=== PATIENT | male | born 1960 | race Caucasian/White ===

== ENCOUNTER 2016-11-16 16:12 | Emergency (ER) | payer OTHER ==
[2016-11-16 16:48] LABS: MANUAL DIFF NEEDED? NO
[2016-11-16 17:00] LABS: BASO% 0.1 % (0.0-0.8); EOS# 0.08 X1000 (0.0-0.7); EOS% 1.1 % (0.0-10.0); HEMATOCRIT 45.3 % (42.0-52.0); HEMOGLOBIN 16.5 g/dL (14.0-18.0); IMM GRAN# 0.04 X1000 (0.0-0.04); IMM GRAN% 0.5 % (0.0-0.5); LYMPH# 1.95 X1000 (1.2-3.4); LYMPH% 26.5 % (20.5-51.1); MCH 32.8 PG (27-31); MCHC 36.4 g/dL (33-37); MCV 90.1 FL (81-99); MONO# 0.39 X1000 (0.11-0.59); MONO% 5.3 % (1.7-9.3); MPV 11.1 FL (7.4-10.4); NEUT% 66.5 % (42.2-75.2); PLT 214 X1000 (130-400); RBC 5.03 XMIL (4.7-6.1)
[2016-11-16 17:32] LABS: INR 0.97; PROTIME 9.9 Seconds (9.2-11.7)
[2016-11-16 17:33] LABS: AGAP 15; ALBUMIN 3.9 g/dL (3.5-5.0); ALKALINE PHOSPHATASE 104 U/L (32-122); BUN 13 mg/dL (8-22); CALCIUM 9.9 mg/dL (8.8-10.2); CHLORIDE 89 mmol/L (98-107); COSMO 280; GOT 38 U/L (10-34); GPT 106 U/L (10-44); POTASSIUM 4.9 mmol/L (3.5-5.1); SODIUM 129 mmol/L (136-145); TCO2 25 mmol/L (25-35); TOTAL BILIRUBIN 0.51 mg/dL (0.20-1.00); TOTAL PROTEIN 7.1 g/dL (6.3-8.3)
[2016-11-16] MEDS ORDERED: HUMULIN R SUBQ ONE (17:34)
[2016-11-16] MEDS ORDERED: NS 1,000 ML IV ONE (17:34)
[2016-11-16 18:03] LABS: ALLEN TEST NO; BE 0.1 mmoll (-3.0-3.0); BLOOD TYPE ARTERIAL; DRAW SITE R BRACHIAL; METHB 1.6 % (0.0-1.5); O2(CT) 19.6 mL/dL (15.0-23.0); PCO2(98.6) 35 mmHg (35-45); PO2(98.6) 87 mmHg (60-100); SAMPLE BLOOD; SAO2 98.8 % (95.0-100.0); THB 15.3 g/dL (11.5-17.4); pH(98.6) 7.44 (7.35-7.45)
[2016-11-16 18:05] LABS: MODALITY ROOM AIR
[2016-11-16 18:20] LABS: URINE MICRO REVIEW NEEDED? NO; URINE SOURCE VOIDED
[2016-11-16 18:23] LABS: BILIRUBIN URINE NEGATIVE (NEGATIVE); BLOOD URINE NEGATIVE (NEGATIVE); COLOR YELLOW; GLUCOSE URINE >1000 mg/dL (NEGATIVE); LEUKOCYTES URINE NEGATIVE (NEGATIVE); NITRITE URINE NEGATIVE (NEGATIVE); PH URINE 5.5; PROTEIN URINE NEGATIVE (NEGATIVE); SP GRAVITY URINE 1.033; TURBIDITY URINE CLEAR (CLEAR); UROBILINOGEN URINE NORMAL (NORMAL)
[2016-11-16 18:24] LABS: UR EPITHELIAL CELLS <10 /HPF (<10); URINE BACTERIA NEGATIVE /HPF; URINE RBC <10 /HPF (<10); URINE WBC <10 /HPF (<10)
[2016-11-16] MEDS ORDERED: NS 500 ML IV ONE (18:58)
[2016-11-16 19:00] LABS: UR AMPHETAMINES QUAL NONE DETECTED (NONE DETECT); UR BARBITUATES QUAL NONE DETECTED (NONE DETECT); UR BENZODIAZEPIN QUAL NONE DETECTED (NONE DETECT); UR CANNABINOIDS QUAL NONE DETECTED (NONE DETECT); UR COCAINE QUAL NONE DETECTED (NONE DETECT); UR METHADONE QUAL NONE DETECTED (NONE DETECT); UR OPIATES QUAL NONE DETECTED (NONE DETECT); UR OXYCODONE QUAL PRESUMPTIVE POSITIVE (NONE DETECT); UR PCP QUAL NONE DETECTED (NONE DETECT)
--- NOTE | 2016-11-16 19:03 | PROVIDER DOCUMENTATION ---
HPI-General Adult - History of Present Illness -Gen Adult Nature of Presenting Problems: A 55 y/o M who was recently diagnosed with type 2 DM presented with non specific symptoms of mild headache fatigue and tiredness, as per pt e was started on glucophage BID but pt was also diagnosed with URI symptoms and was treated with ABX and steroids as outpt, came in for further evaluation, on further monitoring noted elevated glucose levels, denies CP/SOB/n/v/d/garsia/ abdominal pain <To Omer - Last Filed: 11/16/16 20:11> <Donte Campos - Last Filed: 11/16/16 20:55> - General Chief Complaint: High Blood Sugar Stated Complaint: "BLOOD SUGAR 492" Time Seen by Provider: 11/16/16 17:33 Allergies/Adverse Reactions: Patient Allergies Allergy/AdvReac Type Severity Reaction Status Date / Time levofloxacin [From Levaquin] Allergy tendonitis Verified 11/16/16 18:56 Home Medications: Home Medication List Medication Instructions Recorded Confirmed Last Taken Type Baclofen 10 mg PO 4XDAY PRN 11/16/16 11/16/16 11/16/16 10:00 History Losartan/Hydrochlorothiazide 1 each PO DAILY 11/16/16 11/16/16 11/16/16 10:00 History [Hyzaar 100-25 Tablet] Metformin [Glucophage] 500 mg PO BID 11/16/16 11/16/16 11/16/16 10:00 History Metoprolol Succinate E.r. [Toprol 25 mg PO QHS 11/16/16 11/16/16 11/15/16 21:30 History Xl] Oxycodone HCl [Oxycontin] 40 mg PO BID 11/16/16 11/16/16 11/15/16 21:30 History Oxycodone HCl/Acetaminophen 1 each PO 4XDAY PRN 11/16/16 11/16/16 11/16/16 10: 00 History [Percocet 10-325 mg Tablet] Review of Systems - Adult - REVIEW OF SYSTEMS - ADULT Constitutional: reports: see HPI Eyes: reports: no symptoms reported Ears, Nose, Mouth & Throat: reports: no symptoms reported Cardiovascular: reports: no symptoms reported Respiratory: reports: no symptoms reported Gastrointestinal: reports: no symptoms reported Genitourinary: reports: no symptoms reported Musculoskeletal: reports: no symptoms reported Integumentary: reports: no symptoms reported Neurological: reports: no symptoms reported Psychiatric: reports: no symptoms reported Endocrine: reports: no symptoms reported Hematologic/Lymphatic: reports: no symptoms reported Allergic/Immunologic: reports: no symptoms reported All Other Systems: Reviewed and Negative <To Omer - Last Filed: 11/16/16 20:11> Past History - Adult - PAST MEDICAL HISTORY-ADULT Review of Records: reports: Old Records Reviewed, Nursing Assessment Review, Medications Reviewed, Social history reviewed & non-contributory. Major Childhood Illnesses: reports: denies history Cardiovascular: reports: denies history Respiratory: reports: denies history Gastrointestinal: reports: denies history Obstetrical/Gynecological: reports: denies history Genitourinary: reports: denies history Musculoskeletal: reports: denies history Neurological: reports: denies history Endocrine/Immune: reports: denies history Other Conditions: reports: denies history - FAMILY HISTORY Family History: reviewed, not pertinent <To Omer - Last Filed: 11/16/16 20:11> Physical Exam-General - PHYSICAL EXAM-ADULT Initial Vital Signs Reviewed: Yes - CONSTITUTIONAL General Appearance: appears well, alert, no apparent distress - EYES Eyes: PERRL/EOMI, pink conjunctivae, fundi clear, no AV nicking - HEAD, EARS, NOSE, MOUTH & THROAT HENMT: normocephalic/atraumatic, moist mucous membranes, normal ENT inspection, TMs normal, pharynx normal - NECK Neck: non-tender, full range of motion, supple - RESPIRATORY Respiratory: chest non-tender, lungs clear, normal breath sounds, no pleuratic chest pain, no respiratory distress, no accessory muscle use - CARDIOVASCULAR Cardiovascular: normal peripheral pulses, regular rate, rhythm, no edema, no gallop, no JVD, no murmur - GASTROINTESTINAL (ABDOMEN) Abdominal Exam: normal bowel sounds, non tender, soft - MUSCULOSKELETAL Back Exam: normal inspection, no CVA tenderness Extremity: normal range of motion, non-tender, normal gait - SKIN Integumentary: normal color, normal turgor, warm/dry - NEUROLOGIC Neurologic: balance assembler II-XII nml as tested, grossly normal - PSYCHIATRIC Psych/Mental Status: normal mood/affect, normal thought content, normal thought process, oriented x 3 <To Omer - Last Filed: 11/16/16 20:11> Progress - CHANGE OF SHIFT REPORT (ED Provider) Report Given and Care Transferred to:: DR Jolley Items Pending: Labs <To Omer - Last Filed: 11/16/16 20:11> - PLAN OF CARE/RESULTS Progress/Plan/Lab Results: Vital Signs - 24 hr 11/16/16 16:34 Temperature 99.0 F Pulse Rate 80 Respiratory 20 Rate Blood Pressure 148/92 O2 Sat by Pulse 98 Oximetry Orders Category Date Time Status Finger Stick Blood Sugar (ED) DIRECTED Care 11/16/16 16:38 Active Finger Stick Blood Sugar (ED) DIRECTED Care 11/16/16 21:45 Active CHEST-1 VIEW [RAD] Stat Exams 11/16/16 19:28 Taken ABG [RESP] Routine Lab 11/16/16 18:00 Completed CBC WITH ELECTRONIC DIFF [HEME] Stat Lab 11/16/16 16:40 Completed COMPREHENSIVE METABOLIC PANEL [CHEM] Stat Lab 11/16/16 16:40 Completed D-DIMER [CHEM] Stat Lab 11/16/16 16:40 Completed Ketone [ACETONE SERUM] [CHEM] Stat Lab 11/16/16 16:40 Completed PROTIME WITH INR [COAG] Stat Lab 11/16/16 16:40 Completed PTT [COAG] Stat Lab 11/16/16 16:40 Completed TROPONIN T Stat Lab 11/16/16 16:40 Completed URINALYSIS [URINALYSIS] Stat Lab 11/16/16 18:12 Completed URINE DRUG SCREEN Stat Lab 11/16/16 18:12 Completed 0.9% Sodium Chloride Inj [Ns] 1,000 ml Med 11/16/16 17:34 Discontinued IV 999 mls/hr 0.9% Sodium Chloride Inj [Ns] 500 ml Med 11/16/16 18:58 Discontinued IV 999 mls/hr Insulin Human Regular [Humulin R] Med 11/16/16 17:34 Discontinued 10 unit SUBQ NOW ONE Insulin Human Regular [Humulin R] Med 11/16/16 19:11 Discontinued 8 unit IV NOW ONE EKG [EKG] Stat Ther 11/16/16 16:38 Ordered Laboratory Tests 11/16/16 11/16/16 11/16/16 16:40 16:40 16:40 WBC 7.35 RBC 5.03 Hgb 16.5 Hct 45.3 MCV 90.1 MCH 32.8 H MCHC 36.4 RDW Std Deviation 13.3 Plt Count 214 MPV 11.1 H Immature Gran % (Auto) 0.5 Neut % (Auto) 66.5 Lymph % (Auto) 26.5 [place] % (Auto) 5.3 Eos % (Auto) 1.1 Baso % (Auto) 0.1 Immature Gran # (Auto) 0.04 Neut # (Auto) 4.88 Lymph # (Auto) 1.95 [place] # (Auto) 0.39 Eos # (Auto) 0.08 Baso # (Auto) 0.01 PT 9.9 INR 0.97 PTT (Actin FS) 23.0 D-Dimer Specimen Type Sample Site pH pCO2 pO2 HCO3 Base Excess Oxyhemoglobin ABG O2 Sat (Calculated) ABG O2 Saturation ABG Carboxyhemoglobin ABG Methemoglobin Home Test Total Hemoglobin Lactate Liter Flow Blood Gas Modality Sodium 129 L Potassium 4.9 Chloride 89 L Carbon Dioxide 25 Anion Gap 15 BUN 13 Creatinine 1.0 Estimated GFR/1.73 m2 > 60 BUN/Creatinine Ratio 13 Glucose 481 H* Calculated Osmolality 280 Calcium 9.9 Total Bilirubin 0.51 AST 38 H ALT 106 H Alkaline Phosphatase 104 Troponin T Total Protein 7.1 Albumin 3.9 Globulin 3.2 Albumin/Globulin Ratio 1.2 Urine Source Urine Color Urine Turbidity Urine pH Ur Specific [place] Urine Protein Ur Glucose (Stick) Ur Ketones (Stick) Urine Blood Urine Nitrite Urine Bilirubin Urobilinogen Dipstick Urine Leukocytes Urine WBC (Auto) Urine RBC (Auto) U Epithel Cells (Auto) Urine Bacteria (Auto) Urine Opiates Screen Ur Oxycodone Screen Ur Methadone, Qual Ur Barbiturates Screen Ur Phencyclidine Scrn Ur Amphetamines Screen U Benzodiazepines Scrn Urine Cocaine Screen U Cannabinoids Screen Acetone Level 11/16/16 11/16/16 11/16/16 16:40 16:40 16:40 WBC RBC Hgb Hct MCV MCH MCHC RDW Std Deviation Plt Count MPV Immature Gran % (Auto) Neut % (Auto) Lymph % (Auto) [place] % (Auto) Eos % (Auto) Baso % (Auto) Immature Gran # (Auto) Neut # (Auto) Lymph # (Auto) [place] # (Auto) Eos # (Auto) Baso # (Auto) PT INR PTT (Actin FS) D-Dimer 0.25 Specimen Type Sample Site pH pCO2 pO2 HCO3 Base Excess Oxyhemoglobin ABG O2 Sat (Calculated) ABG O2 Saturation ABG Carboxyhemoglobin ABG Methemoglobin Home Test Total Hemoglobin Lactate Liter Flow Blood Gas Modality Sodium Potassium Chloride Carbon Dioxide Anion Gap BUN Creatinine Estimated GFR/1.73 m2 BUN/Creatinine Ratio Glucose Calculated Osmolality Calcium Total Bilirubin AST ALT Alkaline Phosphatase Troponin T < 0.010 Total Protein Albumin Globulin Albumin/Globulin Ratio Urine Source Urine Color Urine Turbidity Urine pH Ur Specific [place] Urine Protein Ur Glucose (Stick) Ur Ketones (Stick) Urine Blood Urine Nitrite Urine Bilirubin Urobilinogen Dipstick Urine Leukocytes Urine WBC (Auto) Urine RBC (Auto) U Epithel Cells (Auto) Urine Bacteria (Auto) Urine Opiates Screen Ur Oxycodone Screen Ur Methadone, Qual Ur Barbiturates Screen Ur Phencyclidine Scrn Ur Amphetamines Screen U Benzodiazepines Scrn Urine Cocaine Screen U Cannabinoids Screen Acetone Level NEGATIVE 11/16/16 11/16/16 11/16/16 18:00 18:12 18:12 WBC RBC Hgb Hct MCV MCH MCHC RDW Std Deviation Plt Count MPV Immature Gran % (Auto) Neut % (Auto) Lymph % (Auto) [place] % (Auto) Eos % (Auto) Baso % (Auto) Immature Gran # (Auto) Neut # (Auto) Lymph # (Auto) [place] # (Auto) Eos # (Auto) Baso # (Auto) PT INR PTT (Actin FS) D-Dimer Specimen Type ARTERIAL Sample Site R BRACHIAL pH 7.44 pCO2 35 pO2 87 HCO3 24.8 Base Excess 0.1 Oxyhemoglobin 90.9 L ABG O2 Sat (Calculated) 19.6 ABG O2 Saturation 98.8 ABG Carboxyhemoglobin 6.40 H* ABG Methemoglobin 1.6 H Home Test NO Total Hemoglobin 15.3 Lactate 1.30 Liter Flow 21.0 Blood Gas Modality ROOM AIR Sodium Potassium Chloride Carbon Dioxide Anion Gap BUN Creatinine Estimated GFR/1.73 m2 BUN/Creatinine Ratio Glucose Calculated Osmolality Calcium Total Bilirubin AST ALT Alkaline Phosphatase Troponin T Total Protein Albumin Globulin Albumin/Globulin Ratio Urine Source VOIDED Urine Color YELLOW Urine Turbidity CLEAR Urine pH 5.5 Ur Specific [place] 1.033 Urine Protein NEGATIVE Ur Glucose (Stick) >1000 A Ur Ketones (Stick) TRACE A Urine Blood NEGATIVE Urine Nitrite NEGATIVE Urine Bilirubin NEGATIVE Urobilinogen Dipstick NORMAL Urine Leukocytes NEGATIVE Urine WBC (Auto) <10 Urine RBC (Auto) <10 U Epithel Cells (Auto) <10 Urine Bacteria (Auto) NEGATIVE Urine Opiates Screen NONE DETECTED Ur Oxycodone Screen PRESUMPTIVE POSITIVE A Ur Methadone, Qual NONE DETECTED Ur Barbiturates Screen NONE DETECTED Ur Phencyclidine Scrn NONE DETECTED Ur Amphetamines Screen NONE DETECTED U Benzodiazepines Scrn NONE DETECTED Urine Cocaine Screen NONE DETECTED U Cannabinoids Screen NONE DETECTED Acetone Level - REASSESSMENT Reassessment #1 Time Reassessed: 20:55 Status: other (Pt was ready to be discharged but started to complain of bilateral ear pain. On exam, pt does have bilateral dry/red TM's.) - EKG 1 Time of EKG reading by physician:: 19:08 EKG Read and Signed by:: To Omer EKG Interpretation (*Must complete 3 of following elements*): Abnormal (RBBB; Lateral infarct, age undetermined) Rate: 63 Rhythm: NSR - CHANGE OF SHIFT REPORT (ED Provider) Report Given and Care Transferred to:: Dr. Jolley Time of Transfer: 20:00 <Donte Campos - Last Filed: 11/16/16 20:55> Departure <To Omer - Last Filed: 11/16/16 20:11> - Departure Time of Disposition Order: 20:14 Certified Medical Emergency: Emergent <Donte Campos - Last Filed: 11/16/16 20:55> - Departure DIAGNOSIS: Hyperglycemia URI (upper respiratory infection) Qualifiers: URI type: unspecified URI Qualified Code(s): J06.9 - Acute upper respiratory infection, unspecified Disposition: HOME 01 Condition: Stable Additional Instructions: Follow up with PCP on Friday. Take all rx as prescribed. ED Follow Up Instructions: You have been treated by a care provider in the Emergency Department. These instructions are being provided to you so you can have an understanding of how to care for yourself upon discharge. Upon discharge from the Emergency Department, you are responsible for making arrangements for follow-up care by a physician of your choice. Take all prescribed medications as directed. Return to the Emergency Department immediately for any new or worsening symptoms. You may call the Physician Referral phone number at [phone] to obtain a list of Physicians who are taking new patients. Referrals: Trevor Olvera MD [Primary Care Provider] - Instructions: Hyperglycemia, [id number] Attestation - Scribe Verification/Attestation Scribe:: Donte Campos Acting as Scribe for:: Choco Jolley Scribe documention review:: This chart was documented by a scribe and accurately reflects the service the provider performed and the decisions made by the provider. <Donte Campos - Last Filed: 11/16/16 20:55> Physician Attestation
[2016-11-16] MEDS ORDERED: HUMULIN R IV ONE (19:11)
[2016-11-16 20:52] VITALS: BP 124/60
--- NOTE | 2016-11-16 21:48 | Diag Imaging Result Document ---
PROCEDURE NAME: CHEST-1 VIEW - 11/16/2016 PORTABLE CHEST: COMPARISON: No comparison films. FINDINGS: The lungs are well expanded. Heart is not enlarged. The vessels are not distended. No pneumonia. No pleural effusion is identified. There are calcified left hilar lymph nodes. There has been prior surgery to the lower neck. IMPRESSION: Negative chest.
--- NOTE | 2016-11-18 10:02 | EKG Report ---
Test Performed on : 11/16/2016 7:08:34 PM Test Reason : Stroke like symptoms Blood Pressure : / mmHG Vent. Rate : 063 BPM Atrial Rate : 063 BPM P-R Int : 166 ms QRS Dur : 158 ms QT Int : 472 ms P-R-T Axes : 022 087 022 degrees QTc Int : 483 ms Normal sinus rhythm. Right bundle branch block Lateral infarct , age undetermined Abnormal ECG No previous ECGs available Unconfirmed Result
== END 2016-11-16 21:06 | disposition home or self-care (01) ==
LOC: ED 16:12
DX: E11.65 Type 2 diabetes mellitus with hyperglycemia (principal); J06.9 Acute upper respiratory infection, unspecified; R94.31 Abnormal electrocardiogram [ECG] [EKG]; Z79.899 Other long term (current) drug therapy
CPT/HCPCS: 71010; 80053; 81001; 82009; 82805; 82948; 84484; 85025; 85379; 85610; 85730; 93005; G0480; J7030; J7040; 80324; 80345; 80346; 80349; 80353; 80358; 80361; 80365; 83992